=== PATIENT | female | born 1970 | race Hispanic/Latino ===

== ENCOUNTER 2018-05-18 16:19 | Emergency (ER) | payer OTHER ==
[~2018-05-18] VITALS: Ht 160 cm; Wt 86.2 kg
== END 2018-05-18 16:30 | disposition home or self-care (01) ==
LOC: FSED 16:19
DX: I86.8 Varicose veins of other specified sites (principal); M79.661 Pain in right lower leg; Q82.8 Other specified congenital malformations of skin
CPT/HCPCS: 99283